=== PATIENT | female | born 1980 ===

== ENCOUNTER 2023-12-23 21:16 | Emergency (ER) | payer OTHER ==
[~2023-12-23] VITALS: Ht 165.1 cm; Wt 58.1 kg
[2023-12-23 21:24] VITALS: PULSE 79; RESP 18; TEMP 98.4
[2023-12-23 22:23] VITALS: BP 106/66; PULSE 79; RESP 18; TEMP 98.4; O2SAT 98
== END 2023-12-23 22:23 | disposition home or self-care (01) ==
LOC: FSED 21:24
DX: S20.214A Contusion of middle front wall of thorax, initial encounter (principal); S60.212A Contusion of left wrist, initial encounter; S60.812A Abrasion of left wrist, initial encounter; L08.9 Local infection of the skin and subcutaneous tissue, unspecified; V47.0XXA Car driver injured in collision with fixed or stationary object in nontraffic accident, initial encounter; Y92.89 Other specified places as the place of occurrence of the external cause
CPT/HCPCS: 71046; 93005; 99283